=== PATIENT | female | born 1975 | race Caucasian/White ===

== ENCOUNTER 2019-11-29 07:03 | Day surgery (SDC) | payer BC ==
[~2019-11-29 07:03] MED LIST: VITAMIN D33000 UNIT PO
--- NOTE | 2019-11-29 07:46 | NUR ---
11/29/19 0746 Leigh Modi PT AND SPOUSE UPDATED ON DELAY, AND SITUATION REGARDING REQUIRED INSTRUMENTS FOR PROCEDURE. PT VERBALIZES UNDERSTANDING AND AGREED TO WAIT IN LOBBY UNTIL DECISION TO PROCEDUE HAS BEEN MADE VIA DR. NORMAN.
== END 2019-11-29 08:30 | disposition home or self-care (01) ==
LOC: ORSCSDS 07:03
DX: E21.0 Primary hyperparathyroidism (principal); Z53.9 Procedure and treatment not carried out, unspecified reason

== ENCOUNTER 2019-12-15 08:04 | Day surgery (SDC) | payer BC ==
[~2019-12-15] VITALS: Ht 162.6 cm; Wt 86.9 kg
--- NOTE | 2019-12-15 08:55 | NUR ---
12/15/19 0855 Fara Aviles PTH INTACT DRAWN AND DELIVERED TO LAB.
--- NOTE | 2019-12-15 13:06 | NUR ---
12/15/19 1306 Alicia Shaver PT IS ACCOMPANIED BY HER AT THIS TIME. VSS. PT HAS TOLERATED PO FLUIDS AND SNACKS WELL AND DENIED NAUSEA. PT RATED PAIN 9/10, RN TREATED WITH IV PAIN MEDICATION AND ORAL PAIN MEDICATION ORDERED BY . WARM BLANKETS PROVIDED. CALL LIGHT IN REACH.
== END 2019-12-15 13:42 | disposition home or self-care (01) ==
LOC: ORSCSDS 08:04
PROVIDERS: Otolaryngology
PROC: 0GBN0ZZ Excision of Right Inferior Parathyroid Gland, Open Approach (ICD-10-PCS; principal; 2019-12-15 09:45)
DX: E21.0 Primary hyperparathyroidism (principal); J45.909 Unspecified asthma, uncomplicated; E66.9 Obesity, unspecified; Z68.32 Body mass index [BMI] 32.0-32.9, adult
CPT/HCPCS: 83970; 88305; 88331; A9270-GY; J1100; J1885; J2250; J2405; J2704; J3010; J7120